=== PATIENT | male | born 1970 | race Caucasian/White ===

== ENCOUNTER 2019-04-27 11:02 | Emergency (ER) | payer BC ==
[2019-04-27 13:20] VITALS: BP 121/63
--- NOTE | 2019-04-27 13:22 | UC ---
Ear Complaint HPI - HPI Summary HPI Summary: 48 yo who awoke with stabbing left ear pain today, with hx of cerumen accumulation as well as chronic tinnitus attributed to hearing loss. - History of Current Complaint Chief Complaint: UCEar Stated Complaint: LT EAR COMPLAINT Time Seen by Provider: 04/27/19 13:21 Hx Obtained From: Patient Onset/Duration: Sudden Onset, Lasting Hours Severity Initially: Moderate Severity Currently: Moderate Pain Intensity: 7 Alleviating Factors: Nothing Associated Signs/Symptoms: Positive: Trauma to Ear - does use q-tips daily - Allergies/Home Medications Allergies/Adverse Reactions: Allergies Allergy/AdvReac Type Severity Reaction Status Date / Time No Known Allergies Allergy Verified 04/27/19 13:18 Home Medications: Home Medications NK [No Home Medications Reported] 04/27/19 [History Confirmed 04/27/19] PMH/Surg Hx/FS Hx/Imm Hx Previously Healthy: Yes - Surgical History Surgical History: Yes Surgery Procedure, Year, and Place: VASECTOMY - Family History Known Family History: Positive: Non-Contributory Negative: Cardiac Disease, Hypertension, Diabetes - Social History Occupation: Employed Full-time Alcohol Use: None Substance Use Type: None Smoking Status (MU): Never Smoked Tobacco Review of Systems All Other Systems Reviewed And Are Negative: Yes Constitutional: Positive: Negative Skin: Positive: Negative Eyes: Positive: Negative ENT: Positive: Ear Ache, Other - chronic tinnitus Respiratory: Positive: Negative Cardiovascular: Positive: Negative Gastrointestinal: Positive: Negative Genitourinary: Positive: Negative Motor: Positive: Negative Neurovascular: Positive: Negative Musculoskeletal: Positive: Negative Neurological: Positive: Negative Psychological: Positive: Negative Is Patient Immunocompromised?: No Physical Exam Triage Information Reviewed: Yes Appearance: Well-Appearing, No Pain Distress Vital Signs: Initial Vital Signs Temp 98.2 F 04/27/19 13:18 Pulse 75 04/27/19 13:18 Resp 14 04/27/19 13:18 BP 121/63 04/27/19 13:18 Pulse Ox 97 04/27/19 13:18 Eye Exam: Normal ENT: Positive: Pharynx normal, Other - moderate left cerumen--removed with a combination of flushing and curetting. TM is normal, canal normal Dental Exam: Normal Neck exam: Normal Respiratory: Positive: Lungs clear, Normal breath sounds Cardiovascular: Positive: RRR, No Murmur Musculoskeletal Exam: Normal Psychological Exam: Normal Skin Exam: Normal Ear Complaint Course/Dx - Course Course Of Treatment: cerumen removed. - Differential Dx/Diagnosis Differential Diagnosis/HQI/PQRI: Cerumen Impaction Provider Diagnosis: Impacted cerumen of left ear Discharge ED - Sign-Out/Discharge Documenting (check all that apply): Patient Departure All imaging exams completed and their final reports reviewed: No Studies - Discharge Plan Condition: Good Disposition: HOME Patient Education Materials: Cerumen Impaction (ED) Referrals: Anthony Reynoso MD [Primary Care Provider] - Additional Instructions: Wax has been removed from the left ear canal, and the tympanic membrane is normal. Take ibuprofen 600mg x 1 when you get home, and use some warm oil drops in the ear. Pain should ease within a few hours. Follow up if you have persistent ear pain. - Billing Disposition and Condition Condition: GOOD Disposition: Home
== END 2019-04-27 14:03 | disposition home or self-care (01) ==
LOC: UCCORT 11:02
DX: H61.22 Impacted cerumen, left ear (principal)
CPT/HCPCS: 69210; 99202; G0463